=== PATIENT | female | born 1950 | race Two or more races ===

== ENCOUNTER 2024-08-25 18:21 | Inpatient (IN) | payer MEDICARE, OTHER ==
[~2024-08-25] VITALS: Ht 154.9 cm; Wt 49.9 kg
[2024-08-25 19:57] LABS: PLATELET COUNT (AUTO) 251 K/uL (150-450); RED BLOOD CELL COUNT(AUTO) 4.18 MIL/uL (4.0-5.2); RED CELL DISTRIBUTION WIDTH 14.5 % (11.5-15.0); WHITE BLOOD COUNT (AUTO) 6.5 K/uL (4.3-11.0)
[2024-08-25 20:07] LABS: APPEARANCE,URINE CLEAR (CLEAR); BLOOD, URINE Trace-intact Ery/uL (NEGATIVE); LEUKOCYTE ESTERASE ,URINE Negative (NEGATIVE); UGLUCOSE Negative (NEGATIVE)
[2024-08-25 20:10] LABS: CALCIUM, SERUM 9.2 mg/dL (8.5-10.1); CREATININE 0.8 mg/dL (0.6-1.3); SODIUM SERUM 135 mmol/L (136-145); UREA NITROGEN, BLOOD 23 mg/dL (7-18)
[2024-08-25 20:12] LABS: ADD URINE CULTURE NO; NITRITE, URINE NEGATIVE (NEGATIVE); SQUAMOUS EPITHELIAL CELL,UR Few /HPF (None Seen)
[2024-08-25 20:19] LABS: ALCOHOL, BLOOD < 3 mg/dL (0-10); ASPARTATE AMINOTRANSFERASE 15 U/L (15-37); TOTAL PROTEIN, SERUM 7.9 g/dL (6.4-8.2)
[2024-08-25 20:19] LABS: AMPHETAMINE, URINE NEGATIVE (NEGATIVE); BARBITURATE, URINE NEGATIVE (NEGATIVE); BENZODIAZEPINE, URINE NEGATIVE (NEGATIVE); CANNABINOID, URINE NEGATIVE (NEGATIVE); COCCAINE, URINE NEGATIVE (NEGATIVE); OPIATE, URINE NEGATIVE (NEGATIVE)
[2024-08-26] MEDS ORDERED: DIVA-78 PO (00:13)
[2024-08-26] MEDS ORDERED: ARIP5TAB10 PO (00:13)
[2024-08-26] MEDS ORDERED: SODI10PO PO (00:13)
[2024-08-26] MEDS ORDERED: ENOX40DI SUBCUT (00:13)
[2024-08-26] MEDS ORDERED: SENN-291 PO (00:13)
[2024-08-26 02:59] VITALS: BP 129/78; TEMP 98; O2SAT 98
[2024-08-26] MEDS ORDERED: MAGNESIUM HYDROXIDE 30 ML UDC PO PRN (03:00)
[2024-08-26] MEDS ORDERED: QUETIAPINE FUMARATE 25 MG TABLET PO PRN (03:00)
[2024-08-26] MEDS ORDERED: MAG HYDROX/AL HYDROX/SIMETH 30 ML UDC PO PRN (03:00)
[2024-08-26] MEDS ORDERED: ZOLPIDEM TARTRATE 5 MG TABLET PO PRN (03:00)
[2024-08-26] MEDS: BLOOD SUGAR DIAGNOSTIC 1 EACH STRIP IN ONE (03:34)
[2024-08-26 08:00] VITALS: BP 112/43; TEMP 97.7; O2SAT 100
[2024-08-26] MEDS ORDERED: SENNOSIDES/DOCUSATE SODIUM 1 UDTAB TABLET PO PRN (11:00)
[2024-08-26] MEDS: FAMOTIDINE (20 MG) 20 MG TABLET PO SCH (11:21)
[2024-08-26] MEDS: DIVALPROEX SODIUM 125 MG TABLET.DR PO SCH (16:51)
[2024-08-26] MEDS ORDERED: OXCARBAZEPINE 150 MG TABLET PO SCH (17:00)
[2024-08-26] MEDS: QUETIAPINE FUMARATE 25 MG TABLET PO SCH (21:30)
[2024-08-26] MEDS: TRAZODONE 50 MG TABLET PO SCH (21:31)
[2024-08-26 21:58] VITALS: BP 118/51; TEMP 98; O2SAT 99
[2024-08-26] MEDS ORDERED: QUETIAPINE FUMARATE 25 MG TABLET PO SCH (22:00)
[2024-08-26] MEDS ORDERED: TRAZODONE 50 MG TABLET PO SCH (22:00)
[2024-08-26] MEDS: ACETAMINOPHEN 325 MG TABLET PO PRN (22:52)
[2024-08-27 07:27] LABS: PLATELET COUNT (AUTO) 244 K/uL (150-450); RED BLOOD CELL COUNT(AUTO) 4.06 MIL/uL (4.0-5.2); RED CELL DISTRIBUTION WIDTH 14.4 % (11.5-15.0); WHITE BLOOD COUNT (AUTO) 4.2 K/uL (4.3-11.0)
[2024-08-27 07:48] LABS: ASPARTATE AMINOTRANSFERASE 12.0 U/L (15-37); CALCIUM, SERUM 9.2 mg/dL (8.5-10.1); CREATININE 0.6 mg/dL (0.6-1.3); SODIUM SERUM 139.0 mmol/L (136-145); TOTAL PROTEIN, SERUM 7.3 g/dL (6.4-8.2); UREA NITROGEN, BLOOD 19.0 mg/dL (7-18)
[2024-08-27 08:00] VITALS: BP 132/57; TEMP 97.8; O2SAT 100
[2024-08-27 09:05] LABS: LDL 95.0 mg/dL (0-99)
[2024-08-27 16:05] VITALS: BP 102/50; TEMP 97.7; O2SAT 100
[2024-08-27 20:36] VITALS: BP 136/69; TEMP 98.1; O2SAT 98
[2024-08-28 08:00] VITALS: BP 126/61; TEMP 97.7; O2SAT 98
[2024-08-28 16:00] VITALS: BP 131/59; TEMP 98.7; O2SAT 97
[2024-08-28 20:15] VITALS: BP 126/68; TEMP 98.5; O2SAT 99
[2024-08-28] MEDS: OLANZAPINE 2.5 MG TABLET PO SCH (20:41)
[2024-08-28] MEDS: ZOLPIDEM TARTRATE 5 MG TABLET PO PRN (23:57)
[2024-08-29 08:00] VITALS: BP 146/78; TEMP 98; O2SAT 99
[2024-08-29] MEDS: DIVALPROEX SODIUM 125 MG TABLET.DR PO SCH (08:55)
[2024-08-29 16:11] VITALS: BP 100/53; TEMP 98.7; O2SAT 96
[2024-08-29 20:16] VITALS: BP 101/48; TEMP 98.4; O2SAT 100
[2024-08-29 22:35] VITALS: BP 110/60; TEMP 97.8; O2SAT 96
[2024-08-30 08:00] VITALS: BP 126/72; TEMP 97.8; O2SAT 97
[2024-08-30 16:00] VITALS: BP 106/49; TEMP 97.3; O2SAT 99
[2024-08-30] MEDS: OLANZAPINE 2.5 MG TABLET PO ONE (16:26)
[2024-08-30] MEDS: DIVALPROEX SODIUM 125 MG TABLET.DR PO SCH (18:28)
[2024-08-30 20:19] VITALS: BP 108/47; TEMP 98.2; O2SAT 98
[2024-08-31 00:27] VITALS: BP 110/62; TEMP 98.1; O2SAT 96
[2024-08-31 08:00] VITALS: BP 135/64; TEMP 98.7; O2SAT 97
[2024-08-31] MEDS: OLANZAPINE 2.5 MG TABLET PO ONE (15:34)
[2024-08-31 16:00] VITALS: BP 127/64; TEMP 98; O2SAT 97
[2024-08-31 20:00] VITALS: BP 134/69; TEMP 97.7; O2SAT 96
[2024-08-31] MEDS: OLANZAPINE 2.5 MG TABLET PO SCH (21:13)
[2024-09-01 08:00] VITALS: BP 126/56; TEMP 98; O2SAT 97
[2024-09-01] MEDS: OLANZAPINE 5 MG TABLET PO SCH (15:32)
[2024-09-01 16:05] VITALS: BP 147/64; TEMP 99; O2SAT 100
[2024-09-01] MEDS: DIVALPROEX SODIUM 250 MG TABLET.DR PO SCH (21:46)
[2024-09-01 23:03] VITALS: BP 158/68; TEMP 98.2; O2SAT 98
[2024-09-02 08:00] VITALS: BP 150/54; TEMP 97.9; O2SAT 98
[2024-09-02] MEDS: LORAZEPAM 0.5 MG TABLET PO ONE (09:52)
[2024-09-02] MEDS: DIVALPROEX SODIUM 250 MG TABLET.DR PO SCH ×2 (13:50→21:33)
[2024-09-02 16:00] VITALS: BP 127/60; TEMP 98.1; O2SAT 94
[2024-09-02] MEDS: ENSURE ENLIVE 237 ML LIQUID (VANILLA) PO SCH (16:53)
[2024-09-02 20:18] VITALS: BP 113/67; TEMP 98.2; O2SAT 97
[2024-09-03 08:00] VITALS: BP 129/62; TEMP 97.5; O2SAT 100
[2024-09-03 15:52] VITALS: BP 132/54; TEMP 97.9; O2SAT 100
[2024-09-03 16:00] VITALS: BP 132/54; TEMP 97.9; O2SAT 100
[2024-09-03 20:20] VITALS: BP 110/52; TEMP 97.8; O2SAT 99
[2024-09-04 08:00] VITALS: BP 119/58; TEMP 98.1; O2SAT 99
[2024-09-04] MEDS: DIVALPROEX SODIUM 250 MG TABLET.DR PO SCH (14:07)
[2024-09-04 16:00] VITALS: BP 100/50; TEMP 98.7; O2SAT 98
[2024-09-04 20:00] VITALS: BP 119/49; TEMP 98.4; O2SAT 98
[2024-09-04 20:26] VITALS: BP 119/44; TEMP 98.4; O2SAT 98
[2024-09-05 08:00] VITALS: BP 111/75; TEMP 98.7; O2SAT 99
[2024-09-05 16:08] VITALS: BP 118/59; TEMP 98.4; O2SAT 97
[2024-09-05 20:03] VITALS: BP 131/53; TEMP 98.5; O2SAT 98
[2024-09-06 08:00] VITALS: BP 112/64; TEMP 98.7; O2SAT 100
[2024-09-06] MEDS: DIVALPROEX SODIUM 125 MG CAP.SPRINK PO SCH (15:13)
[2024-09-06 16:00] VITALS: BP 111/51; TEMP 98.6; O2SAT 98
[2024-09-06 20:19] VITALS: BP 113/70; TEMP 98.2; O2SAT 99
[2024-09-07 08:00] VITALS: BP 131/55; TEMP 97.7; O2SAT 96
[2024-09-07 16:00] VITALS: BP 99/81; TEMP 97.8; O2SAT 96
[2024-09-08 08:00] VITALS: BP 121/59; TEMP 98; O2SAT 98
== END 2024-09-08 14:17 | DRG 885 ==
LOC: ER 18:41 → GPS 08-26 00:28
PROVIDERS: ADMIT Psychiatry & Neurology Psychiatry; ATTEND Internal Medicine
DX: F39 Unspecified mood [affective] disorder (principal); F03.918 Unspecified dementia, unspecified severity, with other behavioral disturbance; F03.93 Unspecified dementia, unspecified severity, with mood disturbance; F03.911 Unspecified dementia, unspecified severity, with agitation; E44.0 Moderate protein-calorie malnutrition; F29 Unspecified psychosis not due to a substance or known physiological condition; F25.9 Schizoaffective disorder, unspecified; Z91.199 Patient's noncompliance with other medical treatment and regimen due to unspecified reason; Z79.899 Other long term (current) drug therapy; E88.09 Other disorders of plasma-protein metabolism, not elsewhere classified; Z73.6 Limitation of activities due to disability; R79.89 Other specified abnormal findings of blood chemistry; F31.9 Bipolar disorder, unspecified; G47.00 Insomnia, unspecified
CPT/HCPCS: 36415; 80048-TC; 80053-TC; 80061-TC; 80076-TC; 80164-TC; 81001; 84484-TC; 85025-TC; 87081-TC; 97110-TC; 97530-TC; G0480